=== PATIENT | female | born 1980 | race Caucasian/White ===

== ENCOUNTER 2021-08-02 09:34 | Day surgery (SDC) | payer BC ==
--- NOTE | 2021-08-02 09:08 | PCM.PREANE ---
Preanesthetic Assessment - Anesthesia/Transfusion/Family Hx Anesthesia History: Prior Anesthesia Without Reaction Other Type of Anesthesia Reaction Comment: Some nausea post D&C, Aunt was slow to awaken Transfusion History: No Prior Transfusion(s) - Review of Systems General: No Symptoms Pulmonary: No Symptoms Cardiovascular: No Symptoms Gastrointestinal: No Symptoms Neurological: No Symptoms Other: Reports: None - Physical Assessment NPO Status Date: 08/02/21 NPO Status Time: 00:00 Height: 5 ft 3.5 in Weight: 164 lb ASA Class: 1 Mental Status: Alert & Oriented x3 Airway Class: Mallampati = 1 Dentition: Reports: Normal Dentition Thyro-Mental Finger Breadths: 3 Mouth Opening Finger Breadths: 3 ROM/Head Extension: Full Lungs: Clear to Auscultation, Normal Respiratory Effort Cardiovascular: Regular Rate, Regular Rhythm - Allergies Allergies/Adverse Reactions: Allergies Allergy/AdvReac Type Severity Reaction Status Date / Time nickel Allergy Rash Verified 07/30/21 10:45 - Acknowledgements Anesthesia Type Planned: General Anesthesia Pt an Appropriate Candidate for the Planned Anesthesia: Yes Alternatives and Risks of Anesthesia Discussed w Pt/Guardian: Yes Pt/Guardian Understands and Agrees with Anesthesia Plan: Yes PreAnesthesia Questionnaire HEENT History: Reports: None Cardiovascular History: Reports: Arrhythmia, Other (See Below) Other Cardiovascular History: hx irregular HR in the past, "wore a monitor for awhile, everything was benign", has varicoise veins, had supervicial blood clot in leg in May 2021 Respiratory History: Reports: None Gastrointestinal History: Reports: GERD, Hemorrhoids Genitourinary History: Reports: STD Musculoskeletal History: Reports: Fracture, Fibromyalgia Other Musculoskeletal History: hx: Fractured nose, Neurological History: Reports: Migraines Other Neuro History: migraines in the past Psychiatric History: Reports: None Endocrine/Metabolic History: Reports: None Hematologic History: Reports: None Immunologic History: Reports: None Oncologic (Cancer) History: Reports: None Other Dermatologic History: hx: Boil with lancing years ago, did at that time test MRSA positive, denies any follow up nasal swabs for review, scalp psoriasis - Past Surgical History Head Surgeries/Procedures: Reports: None HEENT Surgical History: Reports: None Cardiovascular Surgical History: Reports: None Respiratory Surgical History: Reports: None GI Surgical History: Reports: Appendectomy, Colonoscopy Other GI Surgeries/Procedures: hx liver bx Female Surgical History: Reports: D&C, Other (See Below) Other Female Surgeries/Procedures: hx Laproscopy with left S&O Endocrine Surgical History: Reports: None Neurological Surgical History: Reports: None Other Musculoskeletal Surgeries/Procedures:: states had surgery for removal of scar tissue on left foot and had oksana ingroin toenails removed on 07/28/21 Oncologic Surgical History: Reports: None Dermatological Surgical History: Reports: Skin Biopsy - SUBSTANCE USE Tobacco Use Status *Q: Never Tobacco User - HOME MEDS Home Medications: Home Meds Multivitamin [Multivitamins] 1 tab PO DAILY 05/25/15 [History] Ibuprofen 600 mg PO .Q6H PRN #30 tablet 07/04/15 [Rx] Pregabalin [Lyrica] 75 mg PO TID PRN 07/27/21 [History] RABEprazole Sodium [Aciphex] 20 mg PO DAILY 07/27/21 [History] Hydrocodone/Acetaminophen [HYDROcodone-Acetaminophen 5-325 MG] 1 tab PO ASDIRECTED PRN 07/30/21 [History] - CURRENT (IN HOUSE) MEDS Current Meds: Current Medications Albuterol (Albuterol 0.083% 2.5 Mg/3 Ml Neb Soln) 2.5 mg NEB ONETIME PRN PRN Reason: Wheezing Droperidol (Droperidol 5 Mg/2 Ml Sdv) 0.625 mg IVPUSH ONETIME PRN PRN Reason: Nausea/Vomiting Fentanyl (Fentanyl 100 Mcg/2 Ml Sdv) 50 mcg IVPUSH Q5M PRN PRN Reason: Pain (mild 1-3) Hydromorphone HCl (Hydromorphone 1 Mg/Ml Syringe) 1 mg IVPUSH Q10M PRN PRN Reason: Pain (moderate 4-6) Lactated Ringer's (Ringers, Lactated) 1,000 mls @ 125 mls/hr IV ASDIRECTED NAYAN Metoclopramide HCl (Metoclopramide 10 Mg/2 Ml Sdv) 10 mg IVPUSH ONETIME PRN PRN Reason: Nausea/Vomiting Morphine Sulfate (Morphine 2 Mg/Ml Syringe) 2 mg IVPUSH Q10M PRN PRN Reason: Pain (severe 7-10) Naloxone HCl (Naloxone 0.4 Mg/Ml Sdv) 0.1 mg IVPUSH ASDIRECTED PRN PRN Reason: Respiratory Depression Ondansetron HCl (Ondansetron 4 Mg/2 Ml Sdv) 4 mg IVPUSH ONETIME PRN PRN Reason: Nausea/Vomiting Sodium Chloride (Sodium Chloride 0.9% 2.5 Ml Syringe) 2.5 ml FLUSH ASDIRECTED PRN PRN Reason: Keep Vein Open Sodium Chloride (Sodium Chloride 0.9% 20 Ml Sdv) 10 ml IV ASDIRECTED PRN PRN Reason: IV Use Sodium Chloride (Sodium Chloride 0.9% 10 Ml Syringe) 10 ml FLUSH ASDIRECTED PRN PRN Reason: Keep Vein Open Discontinued Medications Cefoxitin Sodium 2 gm/ Premix 50 mls @ 100 mls/hr IV ONETIME ONE Stop: 08/02/21 09:01
[~2021-08-02 09:34] MED LIST: Albuterol 0.083% 2.5 MG/3 ML Neb Soln NEB PRN; HYDROmorphone 1 MG/ML Syringe IVPUSH PRN; Lactated Ringers 1,000 ML IV SCH; Metoclopramide 10 MG/2 ML SDV IVPUSH PRN; Morphine 2 MG/ML SYRINGE IVPUSH PRN; Naloxone 0.4 MG/ML SDV IVPUSH PRN; Ondansetron 4 MG/2 ML SDV IVPUSH PRN; Sodium Chloride 0.9% 10 ML Syringe FLUSH PRN; Sodium Chloride 0.9% 2.5 ML Syringe FLUSH PRN; Sodium Chloride 0.9% 20 ML SDV IV PRN; cefOXitin 2 GM in Premix Bag 1 BAG IV ONE; fentaNYL 100 MCG/2 ML SDV IVPUSH PRN
[2021-08-02] MEDS ORDERED: Propofol 200 MG/20 ML SDV ONE ×2 (09:42→11:32)
[2021-08-02] MEDS ORDERED: fentaNYL 100 MCG/2 ML SDV ONE (09:42)
[2021-08-02] MEDS ORDERED: Midazolam 1 MG/ML 2 ML SDV ONE (09:42)
[2021-08-02] MEDS ORDERED: Lidocaine 2% 5 ML SDV ONE (09:44)
[2021-08-02] MEDS ORDERED: cefOXitin 1 GM Vial ONE (09:45)
[2021-08-02] MEDS ORDERED: Dexamethasone 4 MG/ML 5 ML MDV ONE (09:45)
[2021-08-02] MEDS ORDERED: Ondansetron 4 MG/2 ML SDV ONE (09:45)
[2021-08-02] MEDS ORDERED: Water For Injection, Sterile 20 ML ONE (09:45)
[2021-08-02] MEDS ORDERED: Bupivacaine Liposome 1.3% 20 ML SDV ONE (10:45)
[2021-08-02] MEDS ORDERED: Lidocaine 2% Jelly 30 ML Tube ONE (11:16)
[2021-08-02] MEDS ORDERED: Glycopyrrolate 0.2 MG/ML SDV ONE (11:54)
--- NOTE | 2021-08-02 12:30 | PCM.OPNOTE ---
- General Post-Op/Procedure Note Date of Surgery/Procedure: 08/02/21 Operative Procedure(s): Diagnostic EGD with biopsy, hemorrhoidectomy Findings: RA and LL grade IV hemorrhoids, normal appearing EGD Pre Op Diagnosis: GERD, grade IV hemorrhoids Post-Op Diagnosis: same Anesthesia Technique: General LMA, MAC Primary Surgeon: Elsa Romero Fluid Replacement, Intraop: 1,200 EBL in mLs: 20 Condition: Good
--- NOTE | 2021-08-02 13:03 | PCM.POSTAN ---
POST ANESTHESIA ASSESSMENT - MENTAL STATUS Mental Status: Alert, Oriented - VITAL SIGNS Vital Signs: Last Vital Signs Temp 97.7 F 08/02/21 12:30 Pulse 83 08/02/21 12:50 Resp 11 L 08/02/21 12:50 BP 135/68 08/02/21 12:50 Pulse Ox 99 08/02/21 12:50 - RESPIRATORY Respiratory Status: Respiratory Rate WNL, Airway Patent, O2 Saturation Stable - CARDIOVASCULAR CV Status: Pulse Rate WNL, Blood Pressure Stable - GASTROINTESTINAL GI Status: No Symptoms - POST OP HYDRATION Hydration Status: Adequate & Stable
--- NOTE | 2021-08-02 13:04 | PCM48HPAN ---
Post Anesthesia Note - EVALUATION WITHIN 48HRS OF ANESTHETIC Vital Signs in Normal Range: Yes Patient Participated in Evaluation: Yes Respiratory Function Stable: Yes Airway Patent: Yes Cardiovascular Function Stable: Yes Hydration Status Stable: Yes Pain Control Satisfactory: Yes Nausea and Vomiting Control Satisfactory: Yes Mental Status Recovered: Yes Vital Signs: Last Vital Signs Temp 97.7 F 08/02/21 12:30 Pulse 83 08/02/21 12:50 Resp 11 L 08/02/21 12:50 BP 135/68 08/02/21 12:50 Pulse Ox 99 08/02/21 12:50
[2021-08-02 13:34] VITALS: BP 124/70; PULSE 80
--- NOTE | 2021-08-02 16:57 | OR ---
SURGEON: ABDULAZIZ TURNER MD DATE OF PROCEDURE: 08/02/2021 PREOPERATIVE DIAGNOSES: 1. Gastroesophageal reflux disease. 2. Grade 4 hemorrhoids. POSTOPERATIVE DIAGNOSES: 1. Gastroesophageal reflux disease. 2. Grade 4 hemorrhoids. PROCEDURES PERFORMED: 1. Diagnostic esophagogastroduodenoscopy with biopsy. 2. Hemorrhoidectomy. ANESTHESIA: MAC, general LMA. FLUIDS: 1200 mL of crystalloid. ESTIMATED BLOOD LOSS: 20 mL. INSTRUMENT USED: Olympus endoscope. EXTENT OF EXAM: To the second portion of duodenum. PREPARATION: Good. LIMITATIONS: None. FINDINGS: Normal appearing EGD, left lateral and right anterior hemorrhoidectomy. COMPLICATIONS: None. INDICATIONS: The patient is a 41-year-old female who presented to my office with complaints of chest pressure as well as hemorrhoids. A diagnostic esophagram showed moderate to severe reflux. On physical exam, the patient had grade 4 hemorrhoids. There were two columns that appeared resectable. I explained to the patient that we could do a diagnostic EGD for her GERD symptoms, as well as a hemorrhoidectomy at the same time. I explained both procedures, their separate expected operative courses, and their risks. She verbalized understanding and wishes to proceed. PROCEDURE IN DETAIL: The patient was brought in to the OR and placed on the OR cart in a left lateral decubitus position. A time-out was completed verifying the patient's name, age, date of , allergies, and procedure to be performed. Monitored anesthesia care was induced and a bite block was placed in the patient's mouth. Continuous oxygen was provided via face mask throughout the EGD procedure. After adequate sedation was achieved, a well-lubricated endoscope was placed in the patient's mouth and advanced under direct visualization to the second portion of duodenum. This appeared normal and a photograph was taken. The scope was then fully withdrawn while examining the color, texture, anatomy, and integrity of the mucosa throughout the upper GI tract. There were no signs of inflammation or ulceration throughout the GI tract. A photograph was taken of the duodenal bulb, the pylorus, the GE junction with the scope retroflexed, as well as the GE junction in the distal esophagus. Random biopsies were taken with a cold biopsy forceps from the first portion of duodenum; the antrum, body, and fundus of the stomach; as well as the distal esophagus 1 cm above the Z-line. These were all sent for histologic review. The scope was removed and this portion of the procedure terminated. The buttocks and anoderm were then prepped and draped in usual standard fashion. A digital rectal exam was performed. This exam revealed grade 4 hemorrhoids. Her left lateral and right anterior hemorrhoidal columns were the largest and these were chosen for resection. A bivalve proctoscope was inserted into the rectum. No other abnormalities were noted. I first resected the right anterior hemorrhoidal column. The column was grasped with a Dede clamp and elevated. It was then excised using needle-tip cautery using the cut function. I then closed the mucosal defect with a running locking stitch within the anal canal, transitioned to a simple stitch on the anoderm, and then whip-stitched this back upon itself so that the knot was tied within the anal canal. Hemostasis was achieved. I then turned my attention to the left lateral hemorrhoidal column. This was resected in the same fashion. Both hemorrhoidal columns were sent to Pathology for histologic review. The anoderm was anesthetized with 10 mL of Exparel. I then performed a perineal nerve block on either side. 4 x 4 fluffs and mesh underwear were placed on the patient. She tolerated the procedure well, was extubated, and taken to the PACU in stable condition. During the hemorrhoidectomy portion of the case, the patient was transitioned from monitored anesthesia care to a general LMA. All counts were complete and correct at the end of the case. AGUSTINA SMITH /[id number]
== END 2021-08-02 15:04 | disposition home or self-care (01) ==
LOC: MW.SDS 09:34
PROVIDERS: ATTEND Surgery
DX: K64.3 Fourth degree hemorrhoids (principal); K64.4 Residual hemorrhoidal skin tags; K21.9 Gastro-esophageal reflux disease without esophagitis; K31.89 Other diseases of stomach and duodenum; I78.1 Nevus, non-neoplastic; R16.0 Hepatomegaly, not elsewhere classified; Z01.812 Encounter for preprocedural laboratory examination; Z79.899 Other long term (current) drug therapy; Z90.49 Acquired absence of other specified parts of digestive tract; Z98.890 Other specified postprocedural states; Z20.822 Contact with and (suspected) exposure to COVID-19
CPT/HCPCS: 43239; 46260; 81025; 87635; J0131; J0694; J1100; J1170; J2250; J2370; J2405; J2704; J3010; J3490; J7120; 00902; U0002

== ENCOUNTER 2022-06-07 15:26 | Emergency (ER) | payer BC ==
[2022-06-07 18:32] VITALS: BP 126/78; PULSE 70
== END 2022-06-07 18:31 | disposition home or self-care (01) ==
LOC: MW.ED 15:26
DX: I82.811 Embolism and thrombosis of superficial veins of right lower extremity (principal); Z88.0 Allergy status to penicillin; Z88.8 Allergy status to other drugs, medicaments and biological substances; Z79.01 Long term (current) use of anticoagulants
CPT/HCPCS: 93971-26-RT; 93971-RT; 99283